=== PATIENT | female | born 1965 | race Caucasian/White ===

== ENCOUNTER 2016-07-01 15:12 | Emergency (ER) | payer OTHER ==
[2016-07-01 15:21] VITALS: BMI 26.6
[2016-07-01] MEDS ORDERED: OXYCODONE/APAP 5/325MG COMBO TABLET PO ONE (16:32)
[2016-07-01] MEDS ORDERED: OXYCODONE/APAP 5/325MG COMBO TABLET ONE (16:49)
--- NOTE | 2016-07-01 17:05 | PDOC ---
History of Present Illness - General Chief Complaint: Vaginal Bleeding Stated Complaint: PAIN Time Seen by Provider: 07/01/16 16:04 History Source: Patient Exam Limitations: Language Barrier - History of Present Illness Travel History: No Initial Comments: 07/01/16 16:50 HPI: This 51 year old Macedonian speaking female presents with vaginal bleeding and cramping since this morning. She states through an rim technician on phone # [phone] that it was similar to her period with heavy clots. She states she had her "womb" removed without ovaries removed due to ?cysts? that were not considered cancer. She then became postmenapausal. She has followed a NATURALIZATION EXAMINER over the past 5 years and recent visit 6 months in which PAP was fine. She states her pain is 10/10 and appears uncomfortable without taking any medications at home prior to arrival. She denies n, v, fever. Chief Compliant:vaginal bleeding and cramping PMH: denies FH: Pt has not recently traveled outside the country in the last 30 days. Pt has not been in contact with people who have traveled out of the country, in contact with people who have been ill with fever, n, v, d. SH: smoking use: NONE illicit drug use: NONE alcohol use: NONE employment/educational status: sexual history: PSH: hysterectomy Home med use noted on AUG Allergies:nka Immunizations: PCP: Storm Jaramillo NATURALIZATION EXAMINER:Dr. Rashmi Cr LMP:5 years ago G P : 07/01/16 17:06 Past History - Past Medical History Allergies/Adverse Reactions: Allergies Allergy/AdvReac Type Severity Reaction Status Date / Time No Known Allergies Allergy Verified 07/01/16 15:21 Home Medications: Ambulatory Orders Phenazopyridine HCl [Pyridium] 100 mg PO BID #14 tablet 07/01/16 Sulfamethoxazole/Trimethoprim [Bactrim Ds -] 1 tab PO BID #14 tablet 07/01/16 Anemia: No Asthma: No Cancer: No Cardiac Disorders: No CVA: No COPD: No CHF: No Dementia: No Diabetes: No GI Disorders: No Disorders: No HTN: No Hypercholesterolemia: No Liver Disease: No Seizures: No Thyroid Disease: No - Surgical History Abdominal Surgery: Yes (ectopic) Appendectomy: No Cardiac Surgery: No Cholecystectomy: No Lung Surgery: No Neurologic Surgery: Yes (back sx x 3) Orthopedic Surgery: Yes (back sx x 3) - Immunization History Immunization Up to Date: Yes - Psycho/Social/Smoking Cessation Hx Anxiety: No Suicidal Ideation: No Smoking Status: Yes Smoking History: Never smoked Have you smoked in the past 12 months: Yes Number of Cigarettes Smoked Daily: 1 Information on smoking cessation initiated: No 'Breaking Loose' booklet given: 11/18/13 Hx Alcohol Use: No Drug/Substance Use Hx: No Substance Use Type: None Hx Substance Use Treatment: No Review of Systems - Review of Systems Able to Perform ROS?: Yes Comments:: 07/01/16 17:07 General statement: States she has vaginal bleeding Hematology: neg history of bleeding/blood thinners Skin: Neg for lesions, rash, bruising. HEENT: Neg symptoms Respiratory: Neg SOB or difficulty in breathing Cardiac: Neg chest pain GI: + abd pain lower with cramping without n/v : Neg problems on voiding MS: Neg for joint pain/stiffness, no edema Neuro: Neg for LOC, weakness, Endocrine: Neg for excess thirst/hunger, cold/heat intolerance, excess sweating Allergies: Neg for allergies *Physical Exam - Vital Signs Last Vital Signs Temp Pulse Resp BP Pulse Ox 97.9 F 72 18 106/55 98 07/01/16 15:18 07/01/16 15:18 07/01/16 15:18 07/01/16 15:18 07/01/16 15:18 - Physical Exam Comments: 07/01/16 17:08 General Appearance: This 51 yr old female who has pain appears uncomfortable. V/S: hemodynamically stable, afebrile Skin: WNL of pt's skin color, no signs of pallor, mottling, cyanosis Head:symmetrical Eyes: EOM's intact, PERRLA Ears: denies pain Nose: patent Throat: lips, teeth, gums, tongue, buccal mucos pink and moist Lungs: Chest symmetry equal. Cap refill <3 seconds. Lung sounds clear Cardiac: PMI at R 4MCL space, pos S1 and S2, regular rate. Abdomen: Soft, round, + lower abd tenderness. : Not observed Muscularskeletal: Gait steady, ambulated in to ER, no edema +PMS Neuro: AAOx3, cognitively intact, speech clear and appropriate. ED Treatment Course - LABORATORY CBC & Chemistry Diagram: 07/01/16 17:00 - RADIOLOGY Radiology Studies Ordered: Category Date Time Status PELVIC / BLADDER US [US] Stat Ultrasound 07/01/16 16:31 Ordered TRANSVAGINAL ULTRASOUND US [US] Stat Ultrasound 07/01/16 16:31 Ordered Medical Decision Making - Medical Decision Making 07/01/16 17:09 Pt seen and examined with c/o abd pain and vaginal bleeding that started this morning A/P 1. labs 2. ua 3. transvaginal and pelvic us 4. pain medications 07/01/16 18:29 Laboratory Tests 07/01/16 07/01/16 17:00 17:00 WBC 7.5 Hgb 13.0 Hct 38.5 Plt Count 179 INR 1.10 Pt had a u/s that reveals a hysterectomy and normal sono at this time. ua pending motrin given for pain. 07/01/16 18:42 Pt is found to have + 3 blood on ua with + leuks. Micro pending and culture sent. Will treat with pyridium and bactrim and have pt follow up with her pmd and her NATURALIZATION EXAMINER within a week . *DC/Admit/Observation/Transfer Diagnosis at time of Disposition: Cystitis - Discharge Dispostion Condition at time of disposition: Good Admit: No - Prescriptions Prescriptions: Sulfamethoxazole/Trimethoprim [Bactrim Ds -] 1 tab PO BID #14 tablet Phenazopyridine HCl [Pyridium] 100 mg PO BID #14 tablet - Referrals Referrals: Be Reynolds [Primary Care Provider] - - Patient Instructions Printed Discharge Instructions: DI for Acute Cystitis Additional Instructions: Instrucciones de rachel 1. Por favor, siga con cordoba mdico de cabecera dentro de los prximos gilbert y explique que worrell sido visto aqu en la salomón de emergencia para brian infeccin del tracto urinario. Por favor, siga con cordoba gineclogo en brian semana para la evaluacin si es necesario. Completar los antibiticos segn lo prescrito. [place] pyridium para el dolor maverick sea necesario, sohan tenga en cuenta que puede hacer que cordoba orina de color naranja. 2. Si experimenta algn empeoramiento de los sntomas, por favor regrese a la salomón de emergencias 3. Descansar, evitar el uso de tampones, relaciones sexuales en wilfredo momento. Cuando reanuda las relaciones sexuales, se le sugiere que se lave despus de evitar cualquier infeccin. 4. Sharri joel agua y tome las tabletas de arndano para las prximas 2 semanas. Se pueden comprar en cordoba farmacia local. - Post Discharge Activity Work/School Note: Back to Work
[2016-07-01 17:22] LABS: BASOPHIL 0.5 % (0-2.0); EOSINOPHIL 0.6 % (0-4.5); MCH 30.1 pg (25.7-33.7); MCHC 33.8 g/dl (32.0-36.0); MEAN CELL VOLUME 89.1 fl (80-96); NEUTROPHILS 70.5 % (42.8-82.8); PLATELET COUNT 179 K/MM3 (134-434); RDW 12.8 % (11.6-15.6); WHITE BLOOD COUNT 7.5 K/mm3 (4.0-10.0)
[2016-07-01 17:46] LABS: INR 1.1 (0.82-1.09); PROTHROMBIN TIME (PATIENT) 12.1 SEC (9.98-11.88)
[2016-07-01 18:24] LABS: URINE APPEARANCE CLEAR; URINE BILIRUBIN NEGATIVE (NEGATIVE); URINE COLOR COLORLESS; URINE GLUCOSE (UA) NEGATIVE (NEGATIVE); URINE KETONE NEGATIVE (NEGATIVE); URINE NITRITE NEGATIVE (NEGATIVE); URINE PROTEIN NEGATIVE (NEGATIVE); URINE UROBILINOGEN NEGATIVE E.U./dl (0.2-1.0)
[2016-07-01 18:27] LABS: URINE BLOOD 3+ (NEGATIVE); URINE LEUK ESTERASE 1+ (NEGATIVE)
[2016-07-01 18:28] LABS: URINE BACTERIA RARE /hpf (NONE SEEN); URINE RBC <1 /hpf (0-3); URINE WBC 5 /hpf (3-5)
[2016-07-01] MEDS ORDERED: IBUPROFEN 600 MG TABLET (FP) PO ONE ×2 (18:29→19:18)
[2016-07-01] MEDS ORDERED: PHENAZOPYRIDINE HCL 100 MG TABLET (FP) PO ONE (18:58)
[2016-07-01] MEDS ORDERED: SULFAMETHOXAZOLE/TRIMETHOPRIM 800MG/160MG D.S. TABLET PO ONE (18:59)
[2016-07-01] MEDS ORDERED: SULFAMETHOXAZOLE/TRIMETHOPRIM 800MG/160MG D.S. TABLET ONE (19:17)
[2016-07-01] MEDS ORDERED: PHENAZOPYRIDINE HCL 100 MG TABLET (FP) ONE (19:17)
[2016-07-01 19:27] VITALS: BP 117/69; PULSE 79; TEMP 98
== END 2016-07-01 19:27 | disposition home or self-care (01) ==
LOC: JER 15:12
DX: N30.90 Cystitis, unspecified without hematuria (principal)
CPT/HCPCS: 36415; 76830-TC; 76856-TC; 81003; 81015; 84703; 85025; 85610; 86850; 86900; 86901; 87086; 99283-25

== ENCOUNTER 2017-05-28 23:00 | Emergency (ER) | payer OTHER ==
[2017-05-28 23:27] VITALS: BMI 24.3
--- NOTE | 2017-05-29 00:52 | PDOC ---
History of Present Illness - General Chief Complaint: Pain Stated Complaint: ABDOMINAL PAIN Time Seen by Provider: 05/29/17 00:33 History Source: Patient Exam Limitations: No Limitations - History of Present Illness Initial Comments: 05/29/17 00:45 Patient is a 52-year-old female status post hysterectomy, spine surgery, ectopic complaining of vaginal bleeding since 10 PM today. Reports she went to the bathroom to urinate and the toilet was full of blood. She has no abdominal pain intermittent sharp 9 out of 10 associated with dizziness- room spinning. Denies nausea, vomiting, diarrhea, back pain room spinning, fever, chills, dysuria. PMD: Dr. Duffy PMHX: as above PSOCHX: neg cig, drug, etoh ALL: NKDA GENERAL/CONSTITUTIONAL: [No fever or chills. No weakness. No weight change.] HEAD, EYES, EARS, NOSE AND THROAT: [No change in vision. No ear pain or discharge. No sore throat.] CARDIOVASCULAR: [No chest pain or shortness of breath.] RESPIRATORY: [No cough, wheezing, or hemoptysis.] GASTROINTESTINAL: [No nausea, vomiting, diarrhea or constipation. No rectal bleeding.] GENITOURINARY: [No dysuria, frequency, or change in urination.] MUSCULOSKELETAL: [No joint or muscle swelling or pain. No neck or back pain.] SKIN AND BREASTS: [No rash or easy bruising.] NEUROLOGIC: [No headache, vertigo, loss of consciousness, or loss of sensation.] PSYCHIATRIC: [No depression or anxiety.] ENDOCRINE: [No increased thirst. No abnormal weight change.] HEMATOLOGIC/LYMPHATIC: [No anemia, easy bleeding, or history of blood clots.] ALLERGIC/IMMUNOLOGIC: [No hives or skin allergy. No latex allergy.] GENERAL: [The patient is awake, alert, and fully oriented, in acute distress.] HEAD: [Normal with no signs of trauma.] EYES: [Pupils equal, round and reactive to light, extraocular movements intact, sclera anicteric, conjunctiva clear.] ENT: [Ears normal, nares patent, oropharynx clear without exudates. Moist mucous membranes.] NECK: [Normal range of motion, supple without lymphadenopathy, JVD, or masses.] LUNGS: [Breath sounds equal, clear to auscultation bilaterally. No wheezes, and no crackles.] HEART: [Regular rate and rhythm, normal S1 and S2 without murmur, rub.] ABDOMEN: [Soft, (+) tenderness RLQ, normoactive bowel sounds. No guarding, no rebound. No masses.] EXTREMITIES: [Normal range of motion, no edema. No clubbing or cyanosis. No cords, erythema, or tenderness.] NEUROLOGICAL: [Cranial nerves II through XII grossly intact. Normal speech, normal gait.] PSYCH: [Normal mood, normal affect.] SKIN: [Warm, Dry, normal turgor, no rashes or lesions noted.] Past History - Past Medical History Allergies/Adverse Reactions: Allergies Allergy/AdvReac Type Severity Reaction Status Date / Time No Known Allergies Allergy Verified 05/28/17 23:27 Home Medications: Ambulatory Orders NK [No Known Home Medication] 05/29/17 Anemia: No Asthma: No Cancer: No Cardiac Disorders: No CVA: No COPD: No CHF: No Dementia: No Diabetes: No GI Disorders: No Disorders: No HTN: No Hypercholesterolemia: No Liver Disease: No Seizures: No Thyroid Disease: No - Surgical History Abdominal Surgery: Yes (ectopic) Appendectomy: No Cardiac Surgery: No Cholecystectomy: No Lung Surgery: No Neurologic Surgery: Yes (back sx x 3) Orthopedic Surgery: Yes (back sx x 3) - Reproductive History (#): 5 Para: 5 - Immunization History Immunization Up to Date: Yes - Suicide/Smoking/Psychosocial Hx Smoking Status: Yes Smoking History: Never smoked Have you smoked in the past 12 months: No Number of Cigarettes Smoked Daily: 1 Information on smoking cessation initiated: No 'Breaking Loose' booklet given: 11/18/13 Hx Alcohol Use: No Drug/Substance Use Hx: No Substance Use Type: None Hx Substance Use Treatment: No *Physical Exam - Vital Signs Last Vital Signs Temp Pulse Resp BP Pulse Ox 97.7 F 19 L 20 119/95 96 05/28/17 23:25 05/28/17 23:25 05/28/17 23:25 05/28/17 23:25 05/28/17 23:25 ED Treatment Course - LABORATORY CBC & Chemistry Diagram: 05/29/17 00:50 05/29/17 00:50 - RADIOLOGY Radiology Studies Ordered: Category Date Time Status ABDOMEN & PELVIS CT WITH CONTR [CT] Stat CT Scan 05/29/17 00:44 Ordered Medical Decision Making - Medical Decision Making 05/29/17 00:52 Patient is a 52-year-old female status post hysterectomy, spine surgery, ectopic complaining of vaginal bleeding since 10 PM today. Differential diagnosis include UTI, kidney stone, appendicitis Will get labs, pain meds, CT scan abdomen and pelvis Reassess labs show no acute finding 05/29/17 06:40 Reason for Exam: rlq abd pain r/o appy Referring Physician: Patient Name: LAUREL CUELLAR THIS IS A PRELIMINARY REPORT FROM [facility] DATE OF SERVICE: 2017-05-29 05:54:43 IMAGES: [id number] EXAM: CT ABDOMEN AND PELVIS with contrast HISTORY: Right lower quadrant pain COMPARISON: None. FINDINGS: Lung bases are clear. The visualized cardiac chambers are normal size and configuration. Normal liver, gallbladder, pancreas, spleen, adrenal glands and kidneys. The stomach and abdominal small and large bowel are normal. There is no aortic aneurysm. There is no significant retroperitoneal lymphadenopathy. The pelvic small and large bowel are normal. The appendix is normal. The uterus and adnexal structures are normal. Urinary bladder is unremarkable. There is no pelvic free fluid. No discrete pelvic lymphadenopathy is identified. IMPRESSION: No evidence of acute pathology. THIS DOCUMENT HAS BEEN ELECTRONICALLY SIGNED Kvng Muñoz MD 05/29/2017 06:33 RABIA Dang Please call [facility] [phone] ([phone]) with questions. INTERPRETING RADIOLOGIST: David Muñoz MD Electronically Signed: May 29, 2017 06:35AM RABIA 05/29/17 08:07 Spoke with patient states she has had these symptoms before and was told she has cystitis. Unable to get the UA results back will treat with macrobid, culture sent patient will need a call back. I discussed the physical exam findings, ancillary test results and final diagnoses with the patient. I answered all of the patient's questions. The patient was satisfied with the care received and felt comfortable with the discharge plan and treatment plan. The Patient agrees to follow up with the primary care physician within 24-72 hours. *DC/Admit/Observation/Transfer Diagnosis at time of Disposition: Abdominal pain Qualifiers: Abdominal location: right upper quadrant Qualified Code(s): R10.11 - Right upper quadrant pain - Discharge Dispostion Disposition: HOME Condition at time of disposition: Stable - Referrals Referrals: Be Reynolds [Primary Care Provider] - - Patient Instructions Printed Discharge Instructions: DI for Abdominal Pain-Adult Additional Instructions: Your Discharge Instructions: You must call primary care physician within 24 hours to arrange follow-up. Return to the Emergency Department with any new, persistent or worsening symptoms, for fever, chills, SOB, dizziness or any other concerning changes that may occur. continue the antibiotic until till be we call you about the urine culture. If you dont here from us take until completed. - Post Discharge Activity
[2017-05-29] MEDS ORDERED: KETOROLAC TROMETHAMINE 30 MG/1 ML VIAL IVPUSH ONE (01:00)
[2017-05-29] MEDS ORDERED: KETOROLAC TROMETHAMINE 30 MG/1 ML VIAL ONE (01:01)
[2017-05-29 01:03] LABS: BASO % 0.8 % (0-2.0); EOS # 0.1 # (0-4.5); EOS % 1.6 % (0-4.5); LYMPH # 2.2 (8-40); MCHC 33.4 g/dl (32.0-36.0); MEAN CELL VOLUME 89.7 fl (80-96); MONO # 0.5 # (3.8-10.2); NEUT # 2.5 # (42.8-82.8); NEUT % 46.9 % (42.8-82.8); PLATELET COUNT 175 K/MM3 (134-434); RDW 12.1 % (11.6-15.6); WHITE BLOOD COUNT 5.3 K/mm3 (4.0-10.0)
[2017-05-29 01:32] LABS: URINE APPEARANCE SLCLOUDY; URINE BILIRUBIN NEGATIVE (NEGATIVE); URINE BLOOD NEGATIVE (NEGATIVE); URINE COLOR LTYELLOW; URINE GLUCOSE (UA) NEGATIVE (NEGATIVE); URINE KETONE NEGATIVE (NEGATIVE); URINE LEUK ESTERASE NEGATIVE (NEGATIVE); URINE NITRITE NEGATIVE (NEGATIVE); URINE PROTEIN NEGATIVE (NEGATIVE); URINE UROBILINOGEN NEGATIVE mg/dL (0.2-1.0)
[2017-05-29 01:40] LABS: ALBUMIN 3.6 g/dl (3.4-5.0); ALK PHOS 106 U/L (45-117); ANION GAP 7 (8-16); BILIRUBIN,TOTAL 0.2 mg/dL (0.2-1.0); CALCIUM 8.9 mg/dL (8.5-10.1); CO2 31 mmol/L (21-32); CREATININE 0.9 mg/dL (0.55-1.02); GLUCOSE,RANDOM 92 mg/dL (74-106); SGOT/AST 15 U/L (15-37); SGPT/ALT 22 U/L (12-78); TOT PROT 7.2 g/dl (6.4-8.2)
[2017-05-29] MEDS ORDERED: morphine CARPU-JECT 2 MG/1 ML DISP.SYRIN IVPUSH ONE (05:24)
[2017-05-29] MEDS ORDERED: morphine CARPU-JECT 8 MG/1 ML DISP.SYRIN ONE (05:27)
[2017-05-29] MEDS ORDERED: NITROFURANTOIN MACROCRYSTAL 50 MG CAPSULE (FP) PO SCH (08:15)
[2017-05-29] MEDS ORDERED: NITROFURANTOIN MACROCRYSTAL 50 MG CAPSULE (FP) ONE (10:56)
[2017-05-29 11:10] VITALS: BP 109/75; PULSE 73; TEMP 97.9
[2017-05-29 11:28] LABS: URINE LEUK ESTERASE Negative (NEGATIVE)
== END 2017-05-29 11:11 | disposition home or self-care (01) ==
LOC: JER 23:00
PROC: 3E033NZ Introduction of Analgesics, Hypnotics, Sedatives into Peripheral Vein, Percutaneous Approach (ICD-10-PCS; principal; 2017-05-28)
PROC: 3E0333Z Introduction of Anti-inflammatory into Peripheral Vein, Percutaneous Approach (ICD-10-PCS; 2017-05-28)
DX: R10.31 Right lower quadrant pain (principal)
CPT/HCPCS: 36415; 74177-TC; 80053; 81003; 83690; 85025; 87086; 99284-25; Q9967

== ENCOUNTER 2018-04-02 14:10 | Emergency (ER) | payer OTHER ==
--- NOTE | 2018-04-02 14:44 | PDOC ---
Rapid Medical Evaluation Chief Complaint: Pain, Acute Time Seen by Provider: 04/02/18 14:36 Medical Evaluation: Allergies Allergy/AdvReac Type Severity Reaction Status Date / Time No Known Allergies Allergy Verified 05/28/17 23:27 Vital Signs Temp Pulse Resp BP Pulse Ox 97.8 F 63 20 125/74 100 04/02/18 14:34 04/02/18 14:34 04/02/18 14:34 04/02/18 14:34 04/02/18 14:34 04/02/18 14:41 I have performed a brief in-person evaluation of this patient. The patient presents with a chief complaint of: periumbilical and LLQ pain for 2 days. no N/V. no diarrhea. patient also report pain to fingernail of right index finger Pertinent physical exam findings: periumbilical, LUQ.LLQ pain. no rebound or guarding I have ordered the following: CBC, CMP, UA,UCX, UHCG. ABD ct The patient will proceed to the ED for further evaluation. Discharge Disposition - Diagnosis Abdominal pain Qualifiers: Abdominal location: unspecified location Qualified Code(s): R10.9 - Unspecified abdominal pain - Referrals - Patient Instructions - Post Discharge Activity
[2018-04-02 14:45] VITALS: TEMP 97.8; BMI 25.2
[2018-04-02 15:22] LABS: BASO % 0.3 % (0-2.0); EOS % 2.1 % (0-4.5); HEMATOCRIT 40.7 % (32.4-45.2); HEMOGLOBIN 13.4 GM/dL (10.7-15.3); LYMPH % 31.9 % (8-40); MCH 29.6 pg (25.7-33.7); MCHC 32.9 g/dl (32.0-36.0); MEAN CELL VOLUME 90.1 fl (80-96); MONO % 6.2 % (3.8-10.2); NEUT % 59.5 % (42.8-82.8); PLATELET COUNT 201 K/MM3 (134-434); RBC 4.52 M/mm3 (3.60-5.2); RDW 12.6 % (11.6-15.6); WHITE BLOOD COUNT 7.2 K/mm3 (4.0-10.0)
[2018-04-02 15:52] LABS: URINE APPEARANCE CLEAR; URINE BILIRUBIN NEGATIVE (<2.0 mg/dL); URINE COLOR COLORLESS; URINE GLUCOSE (UA) NEGATIVE (NEGATIVE); URINE KETONE NEGATIVE (NEGATIVE); URINE LEUK ESTERASE 2+ (NEGATIVE); URINE NITRITE NEGATIVE (NEGATIVE); URINE PROTEIN NEGATIVE (NEGATIVE); URINE UROBILINOGEN NEGATIVE mg/dL (0.2-1.0)
[2018-04-02 15:56] LABS: EPI CELLS RARE /HPF (FEW); URINE BACTERIA RARE /hpf (NONE SEEN); URINE HYALINE CAST 1 /lpf
[2018-04-02 16:15] LABS: ALBUMIN 3.8 g/dl (3.4-5.0); ALK PHOS 103 U/L (45-117); ANION GAP 8 MMOL/L (8-16); BILIRUBIN,TOTAL 0.5 mg/dL (0.2-1); BLOOD UREA NITROGEN 15 mg/dL (7-18); CALCIUM 9.1 mg/dL (8.5-10.1); CHLORIDE 106 mmol/L (98-107); CO2 25 mmol/L (21-32); CREATININE 0.7 mg/dL (0.55-1.3); GLUCOSE,RANDOM 93 mg/dL (74-106); POTASSIUM 4.2 mmol/L (3.5-5.1); SGOT/AST 21 U/L (15-37); SGPT/ALT 20 U/L (13-61); SODIUM 139 mmol/L (136-145); TOT PROT 7.5 g/dl (6.4-8.2)
--- NOTE | 2018-04-02 17:30 | PDOC ---
History of Present Illness - General Chief Complaint: Pain, Acute Stated Complaint: HAND PROBLEM Time Seen by Provider: 04/02/18 14:36 History Source: Patient Exam Limitations: No Limitations - History of Present Illness Initial Comments: 04/02/18 17:24 52 yo F with prior hysterctomy ( ectopic) here with c/o llq pain, epigastric pain. described as sharp pain, radiating down to left side and to upper thigh. nausea, no vomiting. no urinary complaints . also feeling palpitations with her pain. no cp no sob. no f/c no sick contacts. no h/o diverticulitis. no other complaints. started earlier today. Past History - Past Medical History Allergies/Adverse Reactions: Allergies Allergy/AdvReac Type Severity Reaction Status Date / Time No Known Allergies Allergy Verified 05/28/17 23:27 Home Medications: Ambulatory Orders NK [No Known Home Medication] 04/02/18 Anemia: No Asthma: No Cancer: No Cardiac Disorders: No CVA: No COPD: No CHF: No Dementia: No Diabetes: No GI Disorders: No Disorders: No HTN: No Hypercholesterolemia: No Liver Disease: No Seizures: No Thyroid Disease: No - Surgical History Abdominal Surgery: Yes (ectopic) Appendectomy: No Cardiac Surgery: No Cholecystectomy: No Lung Surgery: No Neurologic Surgery: Yes (back sx x 3) Orthopedic Surgery: Yes (back sx x 3) - Reproductive History (#): 5 Para: 5 - Immunization History Immunization Up to Date: Yes - Suicide/Smoking/Psychosocial Hx Smoking Status: Yes Smoking History: Never smoked Have you smoked in the past 12 months: No Number of Cigarettes Smoked Daily: 1 Information on smoking cessation initiated: No 'Breaking Loose' booklet given: 11/18/13 Hx Alcohol Use: No Drug/Substance Use Hx: No Substance Use Type: None Hx Substance Use Treatment: No Review of Systems - Review of Systems Constitutional: No: Chills, Diaphoresis, Other HEENTM: No: Eye Pain, Blurred Vision Respiratory: No: Cough Cardiac (ROS): No: Chest Pain, Edema, Irregular Heart Rate : No: Burning, Dysuria Musculoskeletal: No: Back Pain Integumentary: No: Bruising, Change in Color All Other Systems: Reviewed and Negative *Physical Exam - Vital Signs Last Vital Signs Temp Pulse Resp BP Pulse Ox 97.8 F 63 20 125/74 100 10/29/18 14:34 04/02/18 14:34 04/02/18 14:34 04/02/18 14:34 04/02/18 14:34 - Physical Exam Comments: 04/02/18 17:31 awake alert lungs clear bilaterally heart rrr no mrg abd soft epigastric ttp, no rebound no guarding. llq ttp no rebound no guaurding. no cva tenderness. skin warm and dry. ED Treatment Course - LABORATORY CBC & Chemistry Diagram: 04/02/18 14:50 04/02/18 14:50 - ADDITIONAL ORDERS Additional order review: Laboratory Results 04/02/18 04/02/18 04/02/18 15:15 14:50 14:50 Sodium 139 Potassium 4.2 Chloride 106 Carbon Dioxide 25 Anion Gap 8 BUN 15 Creatinine 0.7 Creat Clearance w eGFR > 60 Random Glucose 93 Calcium 9.1 Total Bilirubin 0.5 AST 21 ALT 20 Alkaline Phosphatase 103 Total Protein 7.5 Albumin 3.8 Lipase 110 Urine Color Colorless Urine Appearance Clear Urine pH 6.0 D Ur Specific [place] 1.005 L Urine Protein Negative Urine Glucose (UA) Negative Urine Ketones Negative Urine Blood Negative Urine Nitrite Negative Urine Bilirubin Negative Urine Urobilinogen Negative Ur Leukocyte Esterase 2+ H Urine WBC (Auto) 2 Urine RBC (Auto) 1 Ur Epithelial Cells Rare Urine Bacteria Rare Hyaline Casts 1 04/02/18 14:50 RBC 4.52 MCV 90.1 MCHC 32.9 RDW 12.6 MPV 9.0 Neutrophils % 59.5 D Lymphocytes % 31.9 D Monocytes % 6.2 Eosinophils % 2.1 Basophils % 0.3 Medical Decision Making - Medical Decision Making 04/02/18 20:42 04/02/18 20:43 pt with llq pain, epigastric pain. differential diagnosis diverticultiis colitis , gastritis. plan ct a/p ua cbc cmp. pt ct a/p negative. given pepcid and maalox. will give gi followup. otherwise workup unremarkable. *DC/Admit/Observation/Transfer Diagnosis at time of Disposition: Abdominal pain Qualifiers: Abdominal location: unspecified location Qualified Code(s): R10.9 - Unspecified abdominal pain - Discharge Dispostion Disposition: HOME Condition at time of disposition: Improved - Referrals Referrals: Phillip Johnson DO [Staff Physician] - - Patient Instructions Printed Discharge Instructions: Gastritis Additional Instructions: you should follow up with a corporate tax manager. . you can follow up wt dr. Dill, see referral information. call to schedule. you should take protonix 40 mg daily you can buy it over the counter return for any problems or concerns. your ct scan is negative for any abnormalities except mild fatty liver. you can discuss this with your primary doctor. you may need to have your cholesterol checked with your doctor. return for any problems or concerns. - Post Discharge Activity
[2018-04-02] MEDS ORDERED: ACETAMINOPHEN 1000 MG/100 ML VIAL (NON FORMULARY) IVPB ONE (17:56)
[2018-04-02] MEDS ORDERED: ACETAMINOPHEN INJECTION 100 ML IVPB ONE (18:02)
[2018-04-02 19:15] LABS: HCG,QUALITATIVE URINE Negative
[2018-04-02 20:15] VITALS: BP 120/78; PULSE 56
[2018-04-02] MEDS ORDERED: MAG HYDROX/AL HYDROX/SIMETH 30 ML UNIT-DOSE CUP PO ONE (20:30)
[2018-04-02] MEDS ORDERED: FAMOTIDINE 20 MG/50 ML IVPB 20 MG/50 ML MG IVPB ONE ×2 (20:30→20:35)
[2018-04-02] MEDS ORDERED: MAG HYDROX/AL HYDROX/SIMETH 30 ML UNIT-DOSE CUP ONE (20:35)
== END 2018-04-02 20:55 | disposition home or self-care (01) ==
LOC: JER 14:10
PROC: 3E033GC Introduction of Other Therapeutic Substance into Peripheral Vein, Percutaneous Approach (ICD-10-PCS; principal; 2018-04-02)
PROC: 3E033NZ Introduction of Analgesics, Hypnotics, Sedatives into Peripheral Vein, Percutaneous Approach (ICD-10-PCS; 2018-04-02)
DX: R10.9 Unspecified abdominal pain (principal)
CPT/HCPCS: 36415; 74177-TC; 80053; 81003; 81015; 83690; 84703; 85025; 87086; 96365; 96375; 99282-25; J0131

== ENCOUNTER 2018-11-28 14:12 | Emergency (ER) | payer OTHER ==
--- NOTE | 2018-11-28 14:16 | PDOC ---
Rapid Medical Evaluation Time Seen by Provider: 11/28/18 14:14 Medical Evaluation: Allergies Allergy/AdvReac Type Severity Reaction Status Date / Time No Known Allergies Allergy Verified 05/28/17 23:27 11/28/18 14:14 HPI: Cough and chest tightness, being treated for pneumonia PE + Cough Orders: Nothing Discharge Disposition - Diagnosis Cough - Referrals - Patient Instructions - Post Discharge Activity
[2018-11-28] MEDS ORDERED: DEXAMETHASONE LIQUID 0.5 MG/5 ML 240 ML BULK BOTTLE PO ONE (14:17)
[2018-11-28 14:19] VITALS: BMI 26.6
[2018-11-28] MEDS ORDERED: ALBUTEROL SO4 2.5/IPRATROPIUM 0.5 INH SOL 3 ML VIAL.NEB. NEB ONE (15:22)
[2018-11-28] MEDS ORDERED: DEXAMETHASONE SOD PHOSPHATE 10 MG/1 ML VIAL ONE (15:23)
[2018-11-28] MEDS: ALBUTEROL SO4 2.5/IPRATROPIUM 0.5 INH SOL 3 ML VIAL.NEB. NEB SCH ×2 (15:29→15:30)
--- NOTE | 2018-11-28 16:42 | PDOC ---
History of Present Illness - General Chief Complaint: Cold Symptoms Stated Complaint: ASTHMA Time Seen by Provider: 11/28/18 14:14 History Source: Patient Exam Limitations: Language Barrier (Cancer Program Coordinator Chanell [id number]) - History of Present Illness Initial Comments: 11/28/18 16:35 53 y/o F with no significant PMHx presents with cough. Patient has had cough and fatigue for one week. She visited her PCP on Monday and was started on an Antibiotic for which she has take 3 doses thus far. This AM, she woke with chest tightness and difficulty breathing to the point where she was unable to speak in complete sentences. The chest tightness increases with cough. Patient continues to have nonproductive cough. Of note, during my interview, patient had already received Decadron and 1 nebulizer tx, and became dizzy while seated. Endorse subjective fevers at home and nausea. Denies chills, chest pain, vomiting, diarrhea, constipation, dysuria. Denies any recent trauma, travel, sick contacts or medication changes. PCP: Dr. Cisneros PMHx: Denies PSHx: Hysterectomy, C L-Spine sx's Allergies: NKDA Social: Denies Tobacco, EtOH or Drug use. Currently not employed. FHx: NonContributory Past History - Past Medical History Allergies/Adverse Reactions: Allergies Allergy/AdvReac Type Severity Reaction Status Date / Time No Known Allergies Allergy Verified 11/28/18 14:16 Home Medications: Ambulatory Orders NK [No Known Home Medication] 04/02/18 Anemia: No Asthma: No Cancer: No Cardiac Disorders: No CVA: No COPD: No CHF: No Dementia: No Diabetes: No GI Disorders: No Disorders: No HTN: No Hypercholesterolemia: No Liver Disease: No Seizures: No Thyroid Disease: No - Surgical History Abdominal Surgery: Yes (ectopic) Appendectomy: No Cardiac Surgery: No Cholecystectomy: No Lung Surgery: No Neurologic Surgery: Yes (back sx x 3) Orthopedic Surgery: Yes (back sx x 3) - Reproductive History (#): 5 Para: 5 - Immunization History Immunization Up to Date: Yes - Suicide/Smoking/Psychosocial Hx Smoking Status: Yes Smoking History: Never smoked Have you smoked in the past 12 months: No Number of Cigarettes Smoked Daily: 1 Information on smoking cessation initiated: No 'Breaking Loose' booklet given: 11/18/13 Hx Alcohol Use: No Drug/Substance Use Hx: No Substance Use Type: None Hx Substance Use Treatment: No Review of Systems - Review of Systems Constitutional: Yes: Fever. No: Chills HEENTM: No: Blurred Vision, Double Vision Respiratory: Yes: Cough, Shortness of Breath Cardiac (ROS): Yes: Chest Tightness. No: Chest Pain, Palpitations ABD/GI: No: Constipated, Diarrhea, Nausea, Vomiting : No: Dysuria, Hematuria Neurological: No: Numbness, Tingling *Physical Exam - Vital Signs Last Vital Signs Temp Pulse Resp BP Pulse Ox 98.2 F 69 17 120/86 100 11/28/18 14:16 11/28/18 14:16 11/28/18 14:16 11/28/18 14:16 11/28/18 14:16 - Physical Exam General Appearance: Yes: Nourished, Appropriately Dressed, Mild Distress HEENT: positive: EOMI, GISELE. negative: Pharyngeal Erythema, Tonsillar Exudate Neck: positive: Supple Respiratory/Chest: positive: Lungs Clear (However ausculated after given nebulizer), Normal Breath Sounds. negative: Crackles, Rhonchi, Wheezing Cardiovascular: positive: Regular Rhythm, Regular Rate, S1, S2. negative: Edema , JVD, Murmur Gastrointestinal/Abdominal: positive: Normal Bowel Sounds, Soft. negative: Distended, Guarding, Rebound, Tenderness Musculoskeletal: negative: CVA Tenderness Extremity: negative: Swelling Neurologic: positive: textile technical officer II-XII NML intact, Fully Oriented, Alert, Motor Strength 5/5. negative: Sensory Deficit ED Treatment Course - LABORATORY CBC & Chemistry Diagram: 11/28/18 17:09 11/28/18 17:09 - RADIOLOGY Radiology Studies Ordered: Category Date Time Status CHEST X-RAY PORTABLE* [RAD] Stat Radiology 11/28/18 16:32 Ordered - Medications Given in the ED: ED Medications Discontinued Medications Generic Name Dose Route Start Last Admin Trade Name Freq PRN Reason Stop Dose Admin Albuterol/Ipratropium 1 amp 11/28/18 14:30 11/28/18 15:30 Duoneb - NEB 11/28/18 15:16 1 amp Q15M COLLETTE Administration Dexamethasone 10 mg 11/28/18 14:17 11/28/18 15:29 Decadron Liquid - PO 11/28/18 14:18 10 mg ONCE ONE Administration Medical Decision Making - Medical Decision Making 11/28/18 16:46 53 y/o F with no significant PMHx presents with dry, nonproductive cough. Concern for Bronchitis, PNA, Viral syndrome. Already given 1 Nebulizer tx, 10mg Dexamethasone. Check EKG, PA and Lateral CXR, CBC, CMP, Trop, Flu swab, BNP. Ongoing assessment. 11/28/18 18:33 EKG NSR Flu negative, without leukocytosis Continues to have pain with cough--Will Try Ketorolac 30 IM, Saline Neb CXR without infiltrate or effusion 2nd trop ordered. 11/28/18 21:02 2nd trop <0.02. D/C Home with instructions to follow up with PCP. Return precautions given. Patient agreeable with plan. *DC/Admit/Observation/Transfer Diagnosis at time of Disposition: Cough - Discharge Dispostion Disposition: HOME Condition at time of disposition: Stable Decision to Admit order: No - Referrals - Patient Instructions Printed Discharge Instructions: DI for Acute Bronchitis, DI for Common Cold Additional Instructions: You presented to the emergency department with cough. Your XRay did not reveal Pneumonia and your lab work did not reveal infection. Continue the medication prescribed by your primary care doctor; You can add over the counter cough suppressent and decongestant to help relieve symptoms. Please follow up with your primary doctor in 1-2 days--Please call and make an appointment, Your work up is not complete until you do so. Continue all your other medications as prescribed. Please return to the ER if you have any signs or symptoms of chest pain, shortness of breath, fever, uncontrollable pain, chills, nausea, vomiting, numbness, tingling, or weakness in any part of your body, changes in vision or slurred speech. Please return to the ER if symptoms persist, worsen, or new symptoms arise. - Post Discharge Activity
[2018-11-28] MEDS ORDERED: ACETAMINOPHEN 325 MG TABLET (FP) PO PRN (17:22)
[2018-11-28] MEDS ORDERED: ACETAMINOPHEN 325 MG TABLET (FP) ONE (17:25)
[2018-11-28 17:32] LABS: BASO % 0.7 % (0-2.0); EOS % 1.3 % (0-4.5); HEMATOCRIT 41.7 % (32.4-45.2); HEMOGLOBIN 13.9 GM/dL (10.7-15.3); LYMPH % 30.3 % (8-40); MCHC 33.4 g/dl (32.0-36.0); MEAN PLT VOLUME 8.8 fl (7.5-11.1); MONO % 4.7 % (3.8-10.2); PLATELET COUNT 206 K/MM3 (134-434); RBC 4.63 M/mm3 (3.60-5.2); RDW 12.6 % (11.6-15.6); WHITE BLOOD COUNT 6.6 K/mm3 (4.0-10.0)
[2018-11-28 17:58] LABS: ALK PHOS 113 U/L (45-117); ANION GAP 7 MMOL/L (8-16); BILIRUBIN,TOTAL 0.3 mg/dL (0.2-1); CALCIUM 9.3 mg/dL (8.5-10.1); CHLORIDE 104 mmol/L (98-107); CO2 27 mmol/L (21-32); CREATININE 0.9 mg/dL (0.55-1.3); GLUCOSE,RANDOM 119 mg/dL (74-106); MAGNESIUM 2.2 mg/dL (1.8-2.4); N-TERMINAL BNP 46.7 pg/ml (5-125); PHOSPHOROUS 3.7 mg/dL (2.5-4.9); POTASSIUM 3.8 mmol/L (3.5-5.1); SGOT/AST 17 U/L (15-37); SGPT/ALT 24 U/L (13-61); SODIUM 138 mmol/L (136-145); TOT PROT 7.9 g/dl (6.4-8.2)
[2018-11-28] MEDS ORDERED: SODIUM CHLORIDE FOR INHALATION 3 ML VIAL.NEB IH ONE (18:32)
[2018-11-28] MEDS ORDERED: KETOROLAC TROMETHAMINE 30 MG/1 ML VIAL IM ONE (18:32)
[2018-11-28] MEDS ORDERED: KETOROLAC TROMETHAMINE 30 MG/1 ML VIAL ONE (18:42)
[2018-11-28 20:03] VITALS: BP 112/67; PULSE 88; TEMP 98.3
--- NOTE | 2018-11-28 20:40 | PDOC ---
Documentation entered by Korin Noble SCRIBE, acting as scribe for Yumiko Escalante MD. Yumiko Escalante MD: This documentation has been prepared by the scribe, Korin Noble SCRIBE, under my direction and personally reviewed by me in its entirety. I confirm that the documentation accurately reflects all work, treatment, procedures, and medical decision making performed by me. Attending Attestation - Resident Resident Name: Jenny Landa - ED Attending Attestation I have performed the following: I have examined & evaluated the patient, The case was reviewed & discussed with the resident, I agree w/resident's findings & plan, Exceptions are as noted - HPI HPI: 11/28/18 16:46 The patient is a 53-year-old female, with no significant past medical history, who presents to the ED with 1 week of non productive cough associated with shortness of breath and chest pain. Pt reports the CP and SOB occur only when she coughs. She describes the CP as a tightness right in the middle. Denies CP or SOB when she is not coughing. Denies fever or chills, nausea or vomiting. The patient visited her PCP (Dr. Cisneros) on Monday and was placed on a course of antibiotics to treat pneumonia. She did not have an XR at the time. Patient reports taking 3 doses of the antibiotic so far but presented to the ED due to the CP/SOB when she coughs. She denies dizziness, weakness/numbness, abd pain, urianry sxs, LE edema, calf pain. Denies hx clots, does not take hormones. No recent immobilization or surgery Allergies: NKA Surgical History: Hysterectomy Social History: None reported. - Physicial Exam PE: 11/28/18 20:28 GENERAL: Awake, alert, and fully oriented, in no acute distress HEAD: No signs of trauma EYES: PERRLA, EOMI, sclera anicteric, conjunctiva clear ENT: Nares patent, oropharynx clear without exudates. Moist mucosa NECK: Normal ROM, supple, no lymphadenopathy, JVD, or masses LUNGS: Breath sounds equal, clear to auscultation bilaterally. No wheezes, and no crackles HEART: Regular rate and rhythm, normal S1 and S2, no murmurs, rubs or gallops ABDOMEN: Soft, nontender, normoactive bowel sounds. No guarding, no rebound. No masses EXTREMITIES: Normal range of motion, no edema. No clubbing or cyanosis. No cords, erythema, or tenderness NEUROLOGICAL: Normal speech, cranial nerves intact, 5/5 strength in all 4 extremities, normal sensation to light touch in all 4 extremities, normal cerebellar exam, normal gait SKIN: Warm, Dry, normal turgor, no rashes or lesions noted. - Medical Decision Making 11/28/18 16:40 53yo F, healthy, presents to the ED with cough a/w SOB and CP when she coughs. Vitals wnl Exam with frequent dry, non productive cough, but clear lungs (after neb and decaderon from [facility]) Likely viral syndrome with bronchitis, however, will check labs including trop to eval for ACS Pt is low risk for ACS so will do 2 trops Pt is low risk for PE and in absence of CP/SOB when she is not coughing, makes it very unlikely. Vitals also with no hypoxia or tachycardia Will get CXR to r/o infiltrates, reassess 11/28/18 21:04 Labs, inclduing trop x2 negative CXR clear Pt reports she is feeling much improved after saline neb (felt lightheaded when albuterol neb was given earlier) and toradol She requests DC home Denies CP or SOB Pt to f/u with her PMD in 1-2 days I discussed the physical exam findings, ancillary test results and final diagnoses with the patient. I answered all of the patient's questions. The patient was satisfied with the care received and felt comfortable with the discharge plan and treatment plan. The patient will call their primary care physician within 24 hours to arrange follow-up and will return to the Emergency Department with any new, persistent or worsening symptoms. Heart Score/ECG Review #1 11/28/18 20:28 Twelve-lead EKG was performed and reviewed by me. Normal sinus rhythm, rate 71. Normal axis and intervals. No ST elevations or T-wave inversions.
--- NOTE | 2018-11-29 13:39 | EKG ---
Test Reason : Blood Pressure : / mmHG Vent. Rate : 071 BPM Atrial Rate : 071 BPM P-R Int : 172 ms QRS Dur : 082 ms QT Int : 398 ms P-R-T Axes : 067 016 036 degrees QTc Int : 432 ms NORMAL SINUS RHYTHM POSSIBLE LEFT ATRIAL ENLARGEMENT BORDERLINE ECG WHEN COMPARED WITH ECG OF 07-JAN-2015 15:22, NO SIGNIFICANT CHANGE WAS FOUND Confirmed by NOLVIA REDDY MD ([id number]) on 11/29/2018 1:39:02 PM Referred By: Confirmed By:NOLVIA REDDY MD
== END 2018-11-28 21:15 | disposition home or self-care (01) ==
LOC: JER 14:12
PROC: 3E0F7GC Introduction of Other Therapeutic Substance into Respiratory Tract, Via Natural or Artificial Opening (ICD-10-PCS; principal; 2018-11-28)
PROC: 3E0233Z Introduction of Anti-inflammatory into Muscle, Percutaneous Approach (ICD-10-PCS; 2018-11-28)
PROC: 3E0337Z Introduction of Electrolytic and Water Balance Substance into Peripheral Vein, Percutaneous Approach (ICD-10-PCS; 2018-11-28)
DX: R05 Cough (principal)
CPT/HCPCS: 36415; 71046-TC-FY; 80053; 82550; 82553; 83735; 83880; 84100; 84484; 85025; 87804; 93005; 93010; 99282-25

== ENCOUNTER 2019-05-25 21:38 | Emergency (ER) | payer OTHER ==
[2019-05-25 21:43] VITALS: BMI 25.2
[2019-05-25] MEDS ORDERED: LIDOCAINE PATCH REMOVAL MC SCH (22:00)
--- NOTE | 2019-05-25 22:08 | PDOC ---
History of Present Illness - General Chief Complaint: Pain Stated Complaint: R SHOULDER PAIN Time Seen by Provider: 05/25/19 21:56 Past History - Past Medical History Allergies/Adverse Reactions: Allergies Allergy/AdvReac Type Severity Reaction Status Date / Time No Known Allergies Allergy Verified 05/25/19 21:42 Home Medications: Ambulatory Orders NK [No Known Home Medication] 04/02/18 Anemia: No Asthma: No Cancer: No Cardiac Disorders: No CVA: No COPD: No CHF: No Dementia: No Diabetes: No GI Disorders: No Disorders: No HTN: No Hypercholesterolemia: No Liver Disease: No Seizures: No Thyroid Disease: No - Surgical History Abdominal Surgery: Yes (ectopic) Appendectomy: No Cardiac Surgery: No Cholecystectomy: No Lung Surgery: No Neurologic Surgery: Yes (back sx x 3) Orthopedic Surgery: Yes (back sx x 3) - Reproductive History (#): 5 Para: 5 - Immunization History Immunization Up to Date: Yes - Psycho Social/Smoking Cessation Hx Smoking Status: Yes Smoking History: Never smoked Have you smoked in the past 12 months: No Number of Cigarettes Smoked Daily: 1 'Breaking Loose' booklet given: 11/18/13 Hx Alcohol Use: No Drug/Substance Use Hx: No Substance Use Type: None Hx Substance Use Treatment: No *Physical Exam - Vital Signs Last Vital Signs Temp Pulse Resp BP Pulse Ox 98.1 F 79 18 126/90 97 05/25/19 21:38 05/25/19 21:38 05/25/19 21:38 05/25/19 21:38 05/25/19 21:38 ED Treatment Course - LABORATORY CBC & Chemistry Diagram: 05/25/19 23:20 05/25/19 23:20 Medical Decision Making - Medical Decision Making 05/25/19 23:19 HPI: 54yo F hx 3 mid-back surgeries for herniated disc presents from home c/o 3 days atraumatic RUE and neck pain. Was lying down 3 days ago and when stood up, acute onset R anterior/posterior pressure type shoulder pain radiating to neck and shooting down RUE, worse with movement and deep breaths, wakes up from sleep , unimproved by ibuprofen or icy hot, worsening, constant, similar to prior back pain 2/2 herniated disc (but in different location and involving arm instead of leg), associated with intermittent tingling and constant weakness in RUE, associated with intermittent headache pressure/dull type worse on R side. Denies trauma, falls, heavy lifting, change in activity, rash, fever, chills, fatigue, dizziness, vision changes, photophobia, back pain, incontinence, saddle anesthesia, difficulty walking, shortness of breath, cough, chest pain, palpitations, leg swelling, abdominal pain, blood in stool, diarrhea, constipation, nausea, vomiting, dysuria, hematuria, confusion. States had herniated disc in mid-back without inciting event or trauma, had surgery, then 1mo later fell down stairs and had to have 2 additional back surgeries, denies neck or upper back surgeries. ROS: Constitutional: Negative for chills, fever, fatigue, diaphoresis. HENT: Negative for sore throat, rhinorrhea, congestion. Eyes: Negative for visual disturbance. Respiratory: Negative for shortness of breath, cough, and wheezing. Cardiovascular: Negative for chest pain, palpitations, and leg swelling. Gastrointestinal: Negative for abdominal pain, blood in stool, constipation, diarrhea, nausea, and vomiting. Genitourinary: Negative for dysuria, flank pain, and hematuria. Musculoskeletal: Positive for R shoulder pain, RUE pain, and neck pain. Negative for myalgias, back pain. Skin: Negative for rash. Neurological: Positive for headache, numbness/tingling, and weakness. Negative for light-headedness, dizziness, vertigo, syncope. Psychiatric/Behavioral: Negative for behavioral problems and confusion. PE: Gen: Alert, NAD, uncomfortable-appearing, holding R arm close to side. HEENT: +TTP R inferolateral scalp, PERRL, EOMI, MMM, NCAT. No conjunctival pallor. Sclera are non-icteric. CV: Regular rate and rhythm. No murmurs, rubs, or gallops. PULM: No resp distress. CTAB, no wheezes, rales, or rhonchi. ABD: soft, NT/ND, no rebound tenderness or guarding, no CVA tenderness. BACK: +TTP of c-spine. No TTP of t/l-spine. No step-offs or deformities. MSK: No bony or soft tissue deformities. 2+ pulses in all extremities. +TTP anterior and posterior R shoulder superior to clavicle, R side neck, and midline neck. NEURO: AAOx3. PERRL. CN 2-12 intact. RUE: 4/5 strength R prick stitcher. 2-3/5 strength remaining RUE. Decreased sensation to light touch throughout. Decreased ROM throughout, 2/2 pain vs weakness. LUE/LLE/RLE: 5/5 strength. Sensation to light touch intact. EXTREMITIES: No cyanosis. No clubbing. No edema. No calf tenderness. 2+ pulses. <2 sec cap refill. PSYCH: Normal mood and thought pattern. SKIN: Warm and dry. Normal capillary refill. No rashes. No jaundice. MDM: 54yo F hx 3 mid-back surgeries for herniated disc presents from home with 3 days atraumatic RUE and neck pain similar to prior herniated disc pain (though involving neck/RUE instead of mid-back/legs). Hemodynamically stable, afebrile, decreased strength and sensation of RUE, TTP c-spine and R ant/post shoulder. Concern for cord compression. Ddx includes cord compression, cervical radiculopathy, herniated disc, muscle spasm, muscle strain/sprain, metabolic derangement. No trauma concerning for fx or dislocation. -CBC,CMP,T&S -Pain management: Tylenol, Lidocaine patch, Flexeril -Decadron 10 -CT c-spine and MRI c-spine -Consult Neuro -place c-collar -Dispo: pending w/u No neurosurgeon stone setter apprentice. Spoke with neurologist stone setter apprentice Dr. Grace - recommended 1 dose steroids and MRI , then consider transfer for neurosurgical intervention if indicated. Spoke with Lolly nurse corn crop supervisor - will determine waste handling technician and call back. 05/26/19 00:[address] c-spine reviewed - no acute pathology. Spoke with Lolly nurse corn crop supervisor - states no waste handling technician available tonight, will need to transfer. Informed pt, will transfer to [place] (pt preference). [place] transfer center called - pt accepted for transfer. Discharge - Discharge Information Problems reviewed: Yes Clinical Impression/Diagnosis: Neck pain, Tingling of right upper extremity, Weakness of right upper extremity Condition: Stable Disposition: TRANSFER ACUTE CARE/OTHER HOSP - Admission No - Follow up/Referral Referrals: Luis Eduardo Delacruz [Primary Care Provider] - - Patient Discharge Instructions - Post Discharge Activity
[2019-05-25] MEDS ORDERED: ACETAMINOPHEN 500 MG TABLET (FP) PO ONE (22:34)
[2019-05-25] MEDS ORDERED: ACETAMINOPHEN 325 MG TABLET (FP) ONE (22:39)
[2019-05-25] MEDS ORDERED: LIDOCAINE 5% TOPICAL PATCH TP ONE (22:53)
[2019-05-25] MEDS ORDERED: DEXAMETHASONE SOD PHOSPHATE 10 MG/1 ML VIAL IVPUSH ONE (22:53)
--- NOTE | 2019-05-25 22:58 | PDOC ---
Documentation entered by Keily Alaniz SCRIBE, acting as scribe for Loco Tafoya MD. Loco Tafoya MD: This documentation has been prepared by the Katty small Xhesika, SCRIBE, under my direction and personally reviewed by me in its entirety. I confirm that the documentation accurately reflects all work, treatment, procedures, and medical decision making performed by me. Attending Attestation - Resident Resident Name: Jennifer Macias - ED Attending Attestation I have performed the following: I have examined & evaluated the patient, The case was reviewed & discussed with the resident, I agree w/resident's findings & plan, Exceptions are as noted - HPI HPI: 05/25/19 22:39 The patient is a 54 year old female with a significant past medical history of 3 back surgeries for herniated disks who presents to the ED with neck pain and RUE weakness and pain. The patient states that her neck pain began 3 days ago when she stood up from a supine position. She reports sudden onset sharp pain in her neck. Pt denies any falls or injuries. Denies any heavy lifting. The pain then began to radiate down her arm. Pt now reports severe pain in her neck and arm, accompanied by tingling down her arm and numbness in her fingertips. Pt also reports difficulty moving her arm, though she can't tell if it's due to pain or actual weakness. The patient denies chest pain, shortness of breath, headache and dizziness. Denies fever, chills, cough, nausea, vomiting, diarrhea and constipation. Allergies: NKA Surgical History: Hysterectomy - Physicial Exam PE: 05/25/19 22:39 GENERAL: Awake, alert, and fully oriented, in no acute distress. HEAD: No signs of trauma EYES: PERRLA, EOMI, sclera anicteric, conjunctiva clear ENT: Auricles normal inspection, hearing grossly normal, nares patent, oropharynx clear without exudates. Moist mucosa NECK: Nontender, no stepoffs, Normal ROM, supple, no lymphadenopathy, JVD, or masses LUNGS: Breath sounds equal, clear to auscultation bilaterally. No wheezes, and no crackles HEART: Regular rate and rhythm, normal S1 and S2, no murmurs, rubs or gallops ABDOMEN: Soft, nontender, normoactive bowel sounds. No guarding, no rebound. No masses EXTREMITIES: Normal range of motion, no edema. No clubbing or cyanosis. No cords, erythema, or tenderness NEUROLOGICAL: Cranial nerves II through XII intact. + Diminished furniture sprayer strength RUE, diminished sensation throughout RUE, 5/5 strength and sensation in all other extremities, Normal speech, normal gait, normal cerebellar function SKIN: Warm, Dry, normal turgor, no rashes or lesions noted. - Critical Care Time Total Critical Care Time: 60 Critical Care Statement: The care of this patient involved high complexity decision making to prevent further life threatening deterioration of the patient 's condition and/or to evaluate & treat vital organ system(s) failure or risk of failure. - Medical Decision Making 05/25/19 23:21 54 F with neck pain and RUE weakness. Will need to r/o cord compression. - Labs - CT C-spine - Stat MRI C-spine - Case discussed with Dr. Grace, who agrees with plan 05/26/19 00:02 Per nursing crusher supervisor, No mechanical technical service specialist extruder operator horizontal at this time Will initiate txfer to [facility] per pt request
[2019-05-25 23:30] LABS: BASO % 0.9 % (0-2.0); EOS % 1.5 % (0-4.5); HEMATOCRIT 40.1 % (32.4-45.2); HEMOGLOBIN 13.6 GM/dL (10.7-15.3); LYMPH % 41.2 % (8-40); MCH 30.4 pg (25.7-33.7); MCHC 33.9 g/dl (32.0-36.0); MEAN CELL VOLUME 89.7 fl (80-96); MEAN PLT VOLUME 8.9 fl (7.5-11.1); MONO % 7.1 % (3.8-10.2); NEUT % 49.3 % (42.8-82.8); PLATELET COUNT 205 K/MM3 (134-434); RBC 4.47 M/mm3 (3.60-5.2); RDW 12.4 % (11.6-15.6); WHITE BLOOD COUNT 5.7 K/mm3 (4.0-10.0)
[2019-05-25] MEDS ORDERED: LIDOCAINE 5% TOPICAL PATCH ONE (23:32)
[2019-05-25] MEDS ORDERED: DEXAMETHASONE SOD PHOSPHATE 10 MG/1 ML VIAL ONE (23:32)
[2019-05-25 23:56] LABS: BILIRUBIN,TOTAL 0.3 mg/dL (0.2-1); BLOOD UREA NITROGEN 19.4 mg/dL (7-18); CALCIUM 9.4 mg/dL (8.5-10.1); CREATININE 0.9 mg/dL (0.55-1.3); POTASSIUM 4.3 mmol/L (3.5-5.1); TOT PROT 7.7 g/dl (6.4-8.2)
[2019-05-26] MEDS ORDERED: CYCLOBENZAPRINE HCL 10 MG TABLET (FP) ONE (00:06)
[2019-05-26] MEDS ORDERED: CYCLOBENZAPRINE HCL 5 MG TABLET PO ONE ×2 (00:09→22:54)
[2019-05-26 00:33] VITALS: BP 128/87; PULSE 69
[2019-05-26 00:46] VITALS: TEMP 98.3
== END 2019-05-26 01:27 | disposition short-term general hospital (02) ==
LOC: JER 21:38
PROC: 3E0333Z Introduction of Anti-inflammatory into Peripheral Vein, Percutaneous Approach (ICD-10-PCS; principal; 2019-05-25)
DX: M25.511 Pain in right shoulder (principal); R51 Headache; M54.2 Cervicalgia; R29.898 Other symptoms and signs involving the musculoskeletal system; Z86.39 Personal history of other endocrine, nutritional and metabolic disease; Z87.39 Personal history of other diseases of the musculoskeletal system and connective tissue
CPT/HCPCS: 36415; 72125-TC; 80053; 85025; 85730; 86850; 86900; 86901; 99284-25; J1100

== ENCOUNTER 2024-12-13 19:02 | Emergency (ER) | payer OTHER ==
[2024-12-13 19:09] VITALS: BP 121/74; PULSE 62; RESP 18; TEMP 98.2; BMI 28.0
[2024-12-13] MEDS ORDERED: LIDOCAINE 4% PATCH TP ONE (20:06)
[2024-12-13] MEDS ORDERED: ACETAMINOPHEN 500 MG TABLET (FP) ONE (20:06)
[2024-12-13] MEDS: ACETAMINOPHEN 500 MG TABLET (FP) PO ONE (20:24)
[2024-12-13] MEDS: LIDOCAINE 4% PATCH TP ONE (20:24)
== END 2024-12-13 20:39 | disposition home or self-care (01) ==
LOC: JERFT 19:02
DX: M25.562 Pain in left knee (principal); M25.462 Effusion, left knee; W22.8XXA Striking against or struck by other objects, initial encounter
CPT/HCPCS: 73560-TC-LT-FY; 99283-25